=== PATIENT | male | born 1985 | race African-American/Black ===

== ENCOUNTER 2022-03-17 07:07 | Day surgery (SDC) | payer OTHER ==
[~2022-03-17] VITALS: Ht 190.5 cm; Wt 105.1 kg
[2022-03-17] MEDS ORDERED: LR 1,000 ML IV SCH ×2 (07:25→09:25)
[2022-03-17] MEDS ORDERED: BUPIVACAINE/EPIN 0.5% 30 ML VIAL As Ordered ONE (07:59)
[2022-03-17] MEDS ORDERED: LIDOCAINE W/EPINEPHRINE 1% 20ML VIAL As Ordered ONE (07:59)
[2022-03-17] MEDS ORDERED: dexameTHASONE 4 MG/ML 1ML VIAL (J1100 PER 1MG) As Ordered ONE (08:20)
[2022-03-17] MEDS ORDERED: LIDOCAINE 2% INJ 100 MG/5 ML SYRINGE As Ordered ONE (08:20)
[2022-03-17] MEDS ORDERED: propofoL 200 MG/20 ML VIAL As Ordered ONE (08:20)
[2022-03-17] MEDS ORDERED: fentaNYL 100 MCG/2 ML INJECTION As Ordered ONE (08:20)
[2022-03-17] MEDS ORDERED: MIDAZOLAM INJ 2MG/2ML VIAL (J2250 PER 1MG) As Ordered ONE (08:20)
[2022-03-17] MEDS ORDERED: ACETAMINOPHEN 1000MG 100ML IV BTL (OFIRMEV) (J0131 PER 10MG) As Ordered ONE (08:20)
[2022-03-17] MEDS ORDERED: ROCURONIUM BROMIDE 50 MG/5 ML VIAL As Ordered ONE (08:20)
[2022-03-17] MEDS ORDERED: ONDANSETRON 4MG 2ML VIAL As Ordered ONE (08:45)
[2022-03-17] MEDS ORDERED: SUCCINYLCHOLINE 100 MG/5 ML SYRINGE (J0330) As Ordered ONE (08:46)
[2022-03-17 10:00] VITALS: BP 125/80
== END 2022-03-17 10:18 | disposition home or self-care (01) ==
LOC: M SDC 07:07
PROVIDERS: ATTEND Otolaryngology
DX: K13.79 Other lesions of oral mucosa (principal); R06.83 Snoring
CPT/HCPCS: 42104; J0131; J0330; J1100; J2250; J2405; J3010